=== PATIENT | female | born 1940 | race Caucasian/White ===

== ENCOUNTER → 2018-05-29 | Outpatient (CLI) | payer MEDICARE, OTHER ==
[~2018-05-29] MED LIST: GADOBUTROL 7.5 MMOL/7.5 ML (GADAVIST) VIAL IV ONE
[2018-05-29 09:05] LABS: HEMOGLOBIN 14.4 G/DL (11.5-16.0); MEAN PLATELET VOLUME 10.2 FL (7.4-10.4); RED BLOOD COUNT 5.03 10^6/uL (4.35-5.85); RED CELL DISTRIBUTION WIDTH 13.9 % (10.0-14.5)
[2018-05-29 09:20] LABS: BUN/CREATININE RATIO 17; CREATININE SERUM 0.83 MG/DL (0.60-1.30); GFR ESTIMATED > 60
--- NOTE | 2018-05-29 12:00 | Diagnostic Imaging Report ---
CLINICAL INDICATION: Patient has some hearing loss, and dizziness. EXAM: MRI of the brain/ IACs performed without and with 5 cc of Gadavist IV contrast. Sequences include sagittal T1 localizer, axial T2 propeller, axial flair, axial T1, axial gradient echo, DWI, ADC map, axial T1 thin, axial T2 thin, coronal T1 thin, axial T2 3D FIESTA, axial T1 post contrast whole brain, coronal T1 fat-sat post IV contrast whole brain, sagittal T1 post IV contrast whole brain, axial T1 post IV contrast thin fat sat, and coronal T1 post IV contrast thin. COMPARISONS: None. FINDINGS: TEMPORAL BONE STRUCTURES: There is a small amount of fluid in both mastoid air cells. Otherwise, the remainder of the temporal bone structures are unremarkable. The internal auditory canal, otic capsule, middle ear, and temporal bone structures have normal anatomic appearance and are unremarkable. The visualized nerves VII and VIII within the IACs bilaterally and cisternal portions have normal appearance. CISTERNAL STRUCTURES: There is no cisternal mass seen. The remainder of the visualized cranial nerves in the basal cistern regions are unremarkable. BRAIN PARENCHYMA: There is a 6 mm x 8 mm x 10 mm (AP x Trans x CC) dural based enhancing mass in the parasagittal right frontal area seen anteriorly. There are multiple focal, patchy, and confluent areas of high T2 signal white matter changes involving both cerebral hemispheres and vicente likely representing chronic small vessel ischemic disease and mild leukoaraiosis. There is no significant architectural distortion, midline shift, or herniation. There is no abnormal IV contrast enhancement or diffusion restriction signal changes. VENTRICLES: Unremarkable with no hydrocephalus. VISUALIZED INTRACRANIAL VESSELS: Unremarkable as visualized. SKULL/ ORBITS: Unremarkable. VISUALIZED PARANASAL SINUSES: Unremarkable. IMPRESSION: 1: There is a small amount of fluid in both mastoid air cells. Otherwise unremarkable MRI of the internal auditory canals, temporal bone structures, and basal cisterns. 2: There is a 10 mm avidly enhancing, dural based mass in the parasagittal right frontal lobe region anteriorly which most likely represents a meningioma. 3: Otherwise, unremarkable MRI of the brain for age with chronic small vessel ischemic disease and leukoaraiosis. Dictated by: Dictated on workstation # [id number]
== END ==
LOC: RAD 08:35
PROVIDERS: ATTEND Otolaryngology Otolaryngology/Facial Plastic Surgery
DX: H91.8X2 Other specified hearing loss, left ear (principal); I67.81 Acute cerebrovascular insufficiency
CPT/HCPCS: 36415; 70553; 82565; 84443; 84520; 85027; 85652; 86021; 86038; 86430

== ENCOUNTER 2022-03-11 08:55 | Emergency (ER) | payer MEDICARE, OTHER ==
[~2022-03-11] VITALS: Ht 154.9 cm; Wt 50.3 kg
[2022-03-11 09:10] VITALS: BP 152/82
--- NOTE | 2022-03-11 09:22 | ED General ---
General Chief Complaint: Cardiac/General Problems Stated Complaint: COUGH Nursing Triage Note: Patient reports her PCP recently switched her from lisinopril to losartan d/t a chronic cough. She reports she has been taking her new medication for 1 week and that she would like to have her blood pressure checked to see if her home machine is accurate. She states she has no complaints/no pain. She reports her blood pressure was 112/68 this morning before she took her medication. Source of Information: Patient Exam Limitations: No Limitations History of Present Illness Date Seen by Provider: Mar 11, 2022 Time Seen by Provider: 09:00 Initial Comments 81-year-old female with past medical history of hypertension coming in due to needing a blood pressure check. Recently changed from lisinopril to losartan due to dry cough. She has been on the new medicine for 1 week and wanted to be sure her blood pressure checks at home are accurate. She was 112/68 this morning before she took her medicine. She denies any complaints at this time including no chest pain, shortness of breath, abdominal pain, nausea, vomiting, diarrhea, weakness, numbness, headache, vision changes, or any other concerns Allergies and Home Medications Allergies Coded Allergies: No Known Drug Allergies (Unverified , 05/29/18) Patient Home Medication List Home Medication List Reviewed: Yes Review of Systems Review of Systems Constitutional: No fever EENTM: No blurred vision Respiratory: No cough, No short of breath Cardiovascular: No chest pain Gastrointestinal: No abdominal pain Genitourinary: no symptoms reported Musculoskeletal: no symptoms reported Skin: no symptoms reported Psychiatric/Neurological: No Symptoms Reported Hematologic/Lymphatic: No Symptoms Reported Immunological/Allergic: no symptoms reported All Other Systems Reviewed Negative Unless Noted: Yes Past Zjcfkxa-Tjslwy-Damqva Hx Patient Social History Tobacco Use?: No Substance use?: No Alcohol Use?: Yes Pt feels they are or have been: No Past Medical History Surgery/Hospitalization HX: HTN Surgeries: No Physical Exam Vital Signs Vital Signs - First Documented 03/11/22 09:10 Temp 36.6 Pulse 93 Resp 16 B/P (MAP) 152/82 (105) Pulse Ox 95 O2 Delivery Room Air Capillary Refill : Less Than 3 Seconds Height, Weight, BMI Height: '" Weight: lbs. oz. kg; 20.00 BMI Method: General Appearance: No Apparent Distress, WD/WN Eyes: Bilateral Eye Normal Inspection HEENT: PERRL/EOMI, Normal ENT Inspection, Pharynx Normal Neck: Full Range of Motion, Normal Inspection, Non Tender, Supple Respiratory: Chest Non Tender, Lungs Clear, Normal Breath Sounds, No Accessory Muscle Use, No Respiratory Distress Cardiovascular: Regular Rate, Rhythm, No Edema, Normal Peripheral Pulses Gastrointestinal: Normal Bowel Sounds, Non Tender, Soft; No Guarding Back: Normal Inspection, No CVA Tenderness Extremity: Normal Capillary Refill, Normal Inspection, Normal Range of Motion, Non Tender, No Calf Tenderness, No Pedal Edema Neurologic/Psychiatric: Alert, No Motor/Sensory Deficits, Normal Mood/Affect Skin: Normal Color, Warm/Dry Lymphatic: No Adenopathy Progress/Results/Core Measures Suspected Sepsis SIRS Temperature: Pulse: 93 Respiratory Rate: 16 Blood Pressure 152 /82 Mean: 105 Results/Orders Vital Signs/I&O 03/11/22 09:10 Temp 36.6 Pulse 93 Resp 16 B/P (MAP) 152/82 (105) Pulse Ox 95 O2 Delivery Room Air Capillary Refill : Less Than 3 Seconds Blood Pressure Mean: 105 Progress Note : Progress Note 81-year-old female with above history coming in to get her blood pressure checked. ABCs were intact and vitals were stable on presentation. She was mildly hypertensive on presentation, but repeat blood pressure was 120s systolic after resting. She has no complaints at this time and I believe she should just keep a blood pressure log and follow-up with her regular doctor. She was then discharged home in stable condition with strict return precautions Departure Impression Primary Impression: Hypertension Qualified Codes: I10 - Essential (primary) hypertension Disposition: HOME, SELF-CARE Condition: Stable Departure-Patient Inst. Decision time for Depature: 09:21 Referrals: JOSEPHINE HARDIN MD (PCP/Family) Primary Care Physician Patient Instructions: High Blood Pressure ED Add. Discharge Instructions: Continue to take your medication as prescribed. To take your blood pressure, sit in the chair with your feet resting on the floor, feet uncrossed. Wait 5 minutes and then take your blood pressure with your arm elevated on a pillow. Do not move or talk while the blood pressure is being taken. Write this number down daily and take a log to your doctor. If you begin having severe crushing chest pain, severe shortness of breath, weakness we cannot move 1 side of your body, numbness we cannot feel 1 side of your body, or the worst headache of her life then I would want you to come back to the ER. LISET PARSONS MD Mar 11, 2022 09:22
== END 2022-03-11 09:23 | disposition home or self-care (01) ==
LOC: EDUNIT# 08:55 → ER FS 08:58
DX: I10 Essential (primary) hypertension (principal); Z79.899 Other long term (current) drug therapy
CPT/HCPCS: 99281